=== PATIENT | female | born 1995 ===

== ENCOUNTER 2018-03-12 01:01 | Emergency (ER) | payer SELFPAY ==
[2018-03-12 01:01] VITALS: BMI 24.6
[2018-03-12] MEDS ORDERED: Sodium Chloride 0.9% 1,000 ML IV STA (01:33)
--- NOTE | 2018-03-12 01:41 | ED PDOC ---
Arrival/HPI - General Chief Complaint: Abdominal Pain Time Seen by Provider: 03/12/18 01:02 Historian: Patient - History of Present Illness Narrative History of Present Illness (Text): 03/12/18 01:38 A 22 year old female (French speaking, Rejimarcin Tomasa Vasquez translated), with a past medical history of C- Section, presents to the emergency department with a complaint of 2 day duration of vague suprapubic discomfort. Patient admits to vomiting once and notes urinary frequency. When asked, patient denies the possibility of being . The patient denies fevers, chills, headache, dizziness, sore throat, cough, chest pain, shortness of breath, dyspnea on exertion, nausea, diarrhea, neck/back pain, bowel changes, vaginal discharge, or any other complaint. Time/Duration: Other (2 Days) Symptom Onset: Sudden Symptom Course: Unchanged Activities at Onset: Rest, Light Context: Home Past Medical History - Provider Review Nursing Documentation Reviewed: Yes - Psychiatric Hx Substance Use: No - Anesthesia Hx Anesthesia: No Family/Social History - Physician Review Nursing Documentation Reviewed: Yes Family/Social History: No Known Family HX Smoking Status: Never Smoked Hx Alcohol Use: No Hx Substance Use: No Allergies/Home Meds Allergies/Adverse Reactions: Allergies No Known Allergies Allergy (Verified 09/28/15 17:23) Review of Systems - Physician Review All systems were reviewed & negative as marked: Yes - Review of Systems Constitutional: absent: Fevers Respiratory: absent: SOB, Cough Cardiovascular: absent: Chest Pain, DENNEY Gastrointestinal: Abdominal Pain, Vomiting. absent: Stool Changes, Diarrhea, Nausea Genitourinary Female: Frequency. absent: Dysuria, Vaginal Discharge Musculoskeletal: absent: Back Pain, Neck Pain Neurological: absent: Headache, Dizziness Physical Exam Vital Signs Reviewed: Yes Vital Signs Temp Pulse Resp BP Pulse Ox 03/12/18 03:56 98 F 64 18 124/87 100 03/12/18 01:13 98.4 F 65 16 100 Temperature: Afebrile Blood Pressure: Normal Pulse: Regular Respiratory Rate: Normal Appearance: Positive for: Well-Appearing, Non-Toxic, Comfortable Pain Distress: None Mental Status: Positive for: Alert and Oriented X 3 - Systems Exam Head: Present: Atraumatic, Normocephalic Pupils: Present: PERRL Extroacular Muscles: Present: EOMI Conjunctiva: Present: Normal Mouth: Present: Moist Mucous Membranes Neck: Present: Normal Range of Motion Respiratory/Chest: Present: Clear to Auscultation, Good Air Exchange. No: Respiratory Distress, Accessory Muscle Use Cardiovascular: Present: Regular Rate and Rhythm, Normal S1, S2. No: Murmurs Abdomen: No: Tenderness, Distention, Peritoneal Signs Back: Present: Normal Inspection Upper Extremity: Present: Normal Inspection. No: Cyanosis, Edema Lower Extremity: Present: Normal Inspection. No: Edema Neurological: Present: GCS=15, CN II-XII Intact, Speech Normal Skin: Present: Warm, Dry, Normal Color. No: Rashes Psychiatric: Present: Alert, Oriented x 3, Normal Insight, Normal Concentration Medical Decision Making ED Course and Treatment: 03/12/18 01:41 Impression: A 22 year old female presents to the emergency department with complaint of 2 day suprapubic discomfort with associated vomiting and urinary frequency. Plan: -- Labs -- Urinalysis -- IV Fluids -- Reassess and disposition Prior Visits: Notes and results from previous visits were reviewed. Progress Notes: CT Abdomen and Pelvis With Intravenous Contrast EXAM DATE/TIME: 03/12/2018 3:19 AM Dictated and Authenticated by: Parth Bishop MD 03/12/2018 4:56 AM Eastern Time ([place] & [place]) IMPRESSION: 1. High riding right ovary with enhancing involuting right ovarian dominant follicle measuring 2.5 cm. right paraovarian fluid.If clinically warranted, a pelvic ultrasound may be helpful for further assessment. 03/12/18 05:31 On reevaluation the patient feels better and is in no acute distress. I have discussed the results and plan with the patient, who expresses understanding. Patient given the opportunity to ask question, all questions were answered and there is agreement with the plan to discharge the patient home. Patient is stable for discharge. Patient was instructed to follow up with physician/clinic in 1-2 days or return if symptoms persist/worsen or new concerning symptoms arise. - Lab Interpretations Lab Results: 03/12/18 01:45 03/12/18 01:45 Lab Results 03/12/18 01:45: WBC 6.2, RBC 3.87, Hgb 11.2 L, Hct 33.4 L, MCV 86.3, MCH 28.9, MCHC 33.5, RDW 13.9, Plt Count 315, MPV 10.4 03/12/18 01:45: Sodium 140, Potassium 4.1, Chloride 101, Carbon Dioxide 28, Anion Gap 15, BUN 18, Creatinine 0.7, Est GFR ( Amer) > 60, Est GFR (Non- Af Amer) > 60, Random Glucose 92, Calcium 10.2, Total Bilirubin 0.1 L, AST 21, ALT 19, Alkaline Phosphatase 76, Total Protein 7.5, Albumin 4.1, Globulin 3.4, Albumin/Globulin Ratio 1.2, Lipase 52 03/12/18 01:45: Urine Color Light yellow, Urine Appearance Clear, Urine pH 6.0, Ur Specific [place] >= 1.030, Urine Protein Trace H, Urine Glucose (UA) Negative , Urine Ketones Negative, Urine Blood Negative, Urine Nitrate Negative, Urine Bilirubin Negative, Urine Urobilinogen 0.2, Ur Leukocyte Esterase Negative, Urine RBC 0 - 2, Urine WBC 0 - 2, Ur Epithelial Cells 1 - 3, Urine Bacteria Few , Urine HCG, Qual Negative I have reviewed the lab results: Yes - RAD Interpretation Radiology Orders: 03/12/18 03:19 ABD & PELVIS IV CONTRAST ONLY [CT] Stat - Medication Orders Current Medication Orders: Discontinued Medications Cephalexin Monohydrate (Keflex) 500 mg PO ONCE STA PRN Reason: Protocol Stop: 03/12/18 05:02 Sodium Chloride (Sodium Chloride 0.9%) 1,000 mls @ 999 mls/hr IV .Q1H1M STA Stop: 03/12/18 02:33 Last Admin: 03/12/18 01:46 Dose: 999 mls/hr eMAR Start Stop Document 03/12/18 01:46 IT (Rec: 03/12/18 01:46 IT [id number]) Intravenous Solution Start Date 03/12/18 Start Time 01:46 - Scribe Statement The provider has reviewed the documentation as recorded by the Rejiibirena Vasquez Provider Scribe Attestation: All medical record entries made by the Scribe were at my direction and personally dictated by me. I have reviewed the chart and agree that the record accurately reflects my personal performance of the history, physical exam, medical decision making, and the department course for this patient. I have also personally directed, reviewed, and agree with the discharge instructions and disposition. Disposition/Present on Arrival - Present on Arrival Any Indicators Present on Arrival: No History of DVT/PE: No History of Uncontrolled Diabetes: No Urinary Catheter: No History of Decub. Ulcer: No History Surgical Site Infection Following: None - Disposition Have Diagnosis and Disposition been Completed?: Yes Diagnosis: UTI (urinary tract infection) Disposition: HOME/ ROUTINE Disposition Time: 05:23 Patient Plan: Discharge Patient Problems: Current Active Problems Problem Status Onset UTI (urinary tract infection) Acute Condition: GOOD Discharge Instructions (ExitCare): Urinary Tract Infection, Adult (DC) Additional Instructions: Drink plenty of liquids/take meds as prescribed/follow up with your doctor this week Prescriptions: Cephalexin [cephalexin] 500 mg PO BID #6 cap Forms: [employer] ([employer])
[2018-03-12 01:58] LABS: HEMOGLOBIN 11.2 g/dL (12.0-16.0); MEAN CELL VOLUME 86.3 fl (80.0-105.0); MEAN CORPUSCULAR HEMOGLOBIN 28.9 pg (25.0-35.0); MEAN CORPUSCULAR HGB CONC 33.5 g/dl (31.0-37.0); MEAN PLATELET VOLUME 10.4 fl (7.0-11.0); RBC 3.87 10^6/uL (3.5-6.1); RED CELL DISTRIBUTION WIDTH 13.9 % (11.5-14.5); URINE BILIRUBIN NEGATIVE (NEGATIVE); URINE BLOOD NEGATIVE (NEGATIVE); URINE GLUCOSE (UA) NEGATIVE (NEGATIVE); URINE LEUKOCYTE ESTERASE NEGATIVE Leu/uL (NEGATIVE); URINE PROTEIN TRACE mg/dL (<30 mg/dL); URINE UROBILINOGEN 0.2 E.U./dL (<1 E.U./dL); WHITE BLOOD COUNT 6.2 10^3/ul (4.5-11.0)
[2018-03-12 02:06] LABS: ALB/GLOB RATIO 1.2 (1.1-1.8); ALBUMIN 4.1 g/dL (3.0-4.8); ALT/SGPT 19 U/L (7-56); AST/SGOT 21 U/L (14-36); BLOOD UREA NITROGEN 18 mg/dL (7-21); CALCIUM 10.2 mg/dL (8.4-10.5); GFR NON-AFRICAN AMERICAN > 60; HCG,QUALITATIVE URINE NEGATIVE (NEGATIVE); LIPASE 52 U/L (23-300); URINE APPEARANCE CLEAR (CLEAR); URINE COLOR LIGHT YELLOW (YELLOW)
[2018-03-12 02:11] LABS: URINE RBC 0 - 2 /hpf (0-2)
[2018-03-12 02:12] LABS: URINE BACTERIA FEW (NEG); URINE WBC 0 - 2 /hpf (0-6)
[2018-03-12] MEDS ORDERED: Iohexol 350 MG/100 ML VIAL ONE (03:26)
[2018-03-12 05:42] VITALS: BP 122/82; PULSE 70; RESP 17; TEMP 98; O2SAT 98
--- NOTE | 2018-03-12 09:36 | CT ---
Date of service: 03/12/2018 PROCEDURE: CT Abdomen and Pelvis with contrast HISTORY: abdominal pain COMPARISON: None. TECHNIQUE: Contrast dose: 100 cc of Omni 350 Radiation dose: Total exam DLP = 531 mGy-cm. This CT exam was performed using one or more of the following dose reduction techniques: Automated exposure control, adjustment of the mA and/or kV according to patient size, and/or use of iterative reconstruction technique. FINDINGS: LOWER THORAX: Unremarkable. LIVER: Unremarkable. No gross lesion or ductal dilatation. GALLBLADDER AND BILE DUCTS: Unremarkable. PANCREAS: Unremarkable. No gross lesion or ductal dilatation. SPLEEN: Unremarkable. ADRENALS: Unremarkable. No mass. KIDNEYS AND URETERS: Unremarkable. No hydronephrosis. No solid mass. VASCULATURE: Unremarkable. No aortic aneurysm. BOWEL: Unremarkable. No obstruction. No gross mural thickening. APPENDIX: Normal appendix. PERITONEUM: Unremarkable. No free fluid. No free air. LYMPH NODES: Unremarkable. No enlarged lymph nodes. BLADDER: Unremarkable. REPRODUCTIVE: There is an enhancing involuting cyst in the right ovary with surrounding fluid BONES: No acute fracture. OTHER FINDINGS: The report concurs with the preliminary [facility] report IMPRESSION: There is an enhancing involuting cyst in the right ovary with surrounding fluid
== END 2018-03-12 05:42 | disposition home or self-care (01) ==
LOC: ED 01:01
DX: N39.0 Urinary tract infection, site not specified (principal)
CPT/HCPCS: 74177; 80053; 81001; 83690; 84703; 85027; 99283; J7030; Q9967